=== PATIENT | male | born 1935 | race Caucasian/White ===

== ENCOUNTER 2018-02-26 08:26 | Day surgery (SDC) | payer OTHER ==
[2018-02-25 13:36] LABS: Absolute Monocytes 0.2 K/uL (0.1-1.3); Absolute Neutrophil 1.7 K/uL (1.8-8.0); Basophils % 0.1 % (0-1.3); Eosinophils % 0.2 % (0-4.4); Hematocrit 31.1 % (39.6-49.0); Lymphocytes % 94.2 % (15.3-44.8); MPV 9.5 fL (7.6-11.3); Monocytes % 0.5 % (3.3-12.3); RBC Red Blood Cell Count 3.55 M/uL (4.33-5.43)
[2018-02-25 13:56] LABS: BUN Blood Urea Nitrogen 13 mg/dL (7-18); Bicarbonate 29 mmol/L (21-32); Glucose Level 104 mg/dL (74-106); Potassium 3.9 mmol/L (3.5-5.1); Sodium Level 134 mmol/L (136-145)
--- NOTE | 2018-02-25 14:26 | RAD REPORT ---
EXAM DESCRIPTION: RAD - Chest Pa And Lat (2 Views) - 02/25/2018 2:19 pm CLINICAL HISTORY: PRE SURGERY Chest pain. COMPARISON: Chest Pa And Lat (2 Views) dated 09/23/2017; Chest Pa And Lat (2 Views) dated 08/06/2017 FINDINGS: The lungs are clear. The heart is normal in size. No displaced fractures. IMPRESSION: No acute or concerning finding suspected.
[2018-02-25 14:33] LABS: Platelet Estimate ADEQ
[2018-02-25 14:34] LABS: Blood Morphology Comment NOT SEEN (NOT SEEN)
--- NOTE | 2018-02-26 05:17 | EKG ---
Test Date: 2018-02-25 Test Time: 13:15:23 Die Cast Technician: FIFI/ MEASUREMENT RESULTS: Intervals: Rate: 66 RI: 192 QRSD: 80 QT: 384 QTc: 402 [place]: P: 72 RI: 192 QRS: 64 T: 95 INTERPRETIVE STATEMENTS: Normal sinus rhythm Nonspecific ST abnormality Abnormal ECG Compared to ECG 04/06/2014 10:14:48 ST (T wave) deviation now present Electronically Signed On 02-26-18 05:16:53 SERVICE ESTABLISHMENT ATTENDANT by Kiel Wang
[2018-02-26] MEDS ORDERED: Ringers Lactate 1,000 ML IV ONE (08:47)
[2018-02-26] MEDS ORDERED: CEFAZOLIN 1GM (PREMIX IV) 1 GM/50 ML BAG ONE (08:48)
[2018-02-26] MEDS ORDERED: PROPOFOL 200 MG/20 ML VIAL IV ONE (09:17)
[2018-02-26] MEDS ORDERED: FENTANYL CITR 100 MCG/2 ML ONE (09:17)
[2018-02-26] MEDS ORDERED: LIDOCAINE 2% MPF 5 ML VIAL ONE (09:18)
[2018-02-26] MEDS ORDERED: MIDAZOLAM HCL 2 MG/2 ML INJ ONE (09:18)
[2018-02-26] MEDS ORDERED: ROCURONIUM 50 MG/5 ML VIAL IV ONE (09:18)
[2018-02-26] MEDS ORDERED: EPHEDRINE SULF 50 MG/10 ML SYR ONE (10:10)
[2018-02-26] MEDS ORDERED: KETOROLAC 30 MG/ML INJ ONE (10:28)
--- NOTE | 2018-02-27 03:30 | OP ---
Date of Procedure: 02/26/2018 Surgeon: Roberto Jim MD Preoperative Diagnosis: Right inguinal hernia. Postoperative Diagnosis: Right inguinal hernia. Procedure: Repair of right inguinal hernia. Estimated Blood Loss: Minimal. Specimen: Hernia sac. Findings: As above. Anesthesia: General. Complications: None. Disposition: The patient tolerated the procedure in stable condition and taken to recovery in good g eneral condition. Procedure In Detail: The patient was brought to the OR and placed in supine position. General anest hesia was begun. The patient was prepped and draped in the usual sterile fashion. Marcaine 0.5% was infiltrated in a field block fashion at the pubic tubercle and the anterior superior spine, and then a 4-cm incision made obliquely between the two. Subcutaneous tissue was divided. Rubens's fascia w as identified and divided. Aponeurosis was identified and mobilized inferiorly to expose shelving ed ge, and then the aponeurosis was opened through the external ring. Ilioinguinal nerve was identified and retracted out of the field of dissection. Cord was skeletonized. A large indirect sac was pres ent, dissected free from the cord structures. High ligation with 2-0 Prolene suture ligature and víctor e hand tie was done. Sac was excised and sent to Pathology as specimen. No in direct hernia was nicholas reciated. Subsequently Marlex mesh plug was placed in the internal ring and secured with the [employer] stapler. Onlay mesh was placed on the inguinal floor and secured medially to the pubic tubercle, superiorly to the conjoined tendon and inferior to the shelving edge, laterally to each other. Then, cord structures and ilioinguinal nerve were placed back in their anatomic location. A 2-0 Prolene w as used to close the aponeurosis, 3-0 chromic was used to close the Rubens's fascia, and jordon were used to close skin. Sterile dressing was applied. The patient was awakened and taken to recovery i n good general condition. Discharge Note: The patient will go to day surgery and home when stable. Disposition: Home. Condition: Stable. Discharge Instructions: Resume home medications and diet. Activity as tolerated. No heavy lifting. Remove outer dressing in 2 days. Shower. Keep wound clean and dry. Follow up in my office in a w [place]. Call for appointment. Tylenol No. 3, 1 tablet p.o. q.4 p.r.n. pain. Scrotal support. Ice pac k as needed. TOMMY/DONG Voice ID: [id number] Report ID: [id number]
== END 2018-02-26 13:06 | disposition home or self-care (01) ==
LOC: OR 08:26
PROVIDERS: ATTEND Surgery
PROC: 0YU50JZ Supplement Right Inguinal Region with Synthetic Substitute, Open Approach (ICD-10-PCS; principal; 2018-02-26 09:45)
DX: K40.90 Unilateral inguinal hernia, without obstruction or gangrene, not specified as recurrent (principal); I10 Essential (primary) hypertension; C91.10 Chronic lymphocytic leukemia of B-cell type not having achieved remission; Z80.52 Family history of malignant neoplasm of bladder
CPT/HCPCS: 36415; 49505; 71046; 80048; 85025; 88302; 93005; J0690; J2250; J2704; J3010

== ENCOUNTER → 2018-07-30 | Day surgery (SDC) | payer OTHER ==
[2018-07-29 16:10] LABS: Ferritin 191.4 ng/mL (26-388)
[~2018-07-30] MED LIST: NA CHLORIDE 0.9% 500 ML ONE
[2018-07-30 09:01] VITALS: BP 105/47; TEMP 99.8; O2SAT 99
[2018-07-30 09:04] VITALS: BMI 24.5
[2018-07-30 14:50] LABS: Hematocrit 21.1 % (39.6-49.0)
== END ==
LOC: DS 07:36
PROVIDERS: ATTEND Internal Medicine Medical Oncology
DX: C91.10 Chronic lymphocytic leukemia of B-cell type not having achieved remission (principal); D64.81 Anemia due to antineoplastic chemotherapy
CPT/HCPCS: 36415 ×2; 86900; 86850; 86901; 85018; 85014; 82728; 83540; 84466; 82668; 36430; P9016 ×2

== ENCOUNTER 2018-08-03 16:43 | Inpatient (IN) | payer OTHER ==
[2018-08-03] MEDS ORDERED: CEFEPIME 1 GM/100 ML BAG IV ONE (17:25)
[2018-08-03] MEDS ORDERED: ACETAMINOPHEN 500 MG TAB ONE (17:25)
[2018-08-03] MEDS ORDERED: NA CHLORIDE 0.9% 2,000 ML ONE (17:26)
--- NOTE | 2018-08-03 17:27 | ER ---
Nurse's Notes [facility] Name: Oscar Hernandez Age: 82 yrs Sex: Male : 1935 Arrival Date: 08/03/2018 Time: 16:44 Bed 8 Private MD: Po Giang V Diagnosis: Neutropenia;Fever, unspecified Presentation: 08/03 16:48 Presenting complaint: Patient states: "I am being treated for CLL and I had one chemo aa5 treatment back in June and today I had blood work and they said I was anemic". Pt reports chills. Transition of care: patient was not received from another setting of care. Onset of symptoms was August 03, 2018. Risk Assessment: Do you want to hurt yourself or someone else? Patient reports no desire to harm self or others. Care prior to arrival: None. 16:48 Acuity: CHARBEL 2 aa5 16:48 Method Of Arrival: Ambulatory aa5 17:00 Initial Sepsis Screen: Does the patient meet any 2 criteria? Temp <36.0*C (96.8*F)) or aa5 > 38.3*C (100.9*F). HR > 90 bpm. Yes Does the patient have a suspected source of infection? Yes:. Historical: - Allergies: 16:50 No Known Allergies; aa5 - PMHx: 16:50 CLL; Hypertension; aa5 - PSHx: 16:50 Hernia repair; aa5 - Social history:: Smoking status: Patient/guardian denies using tobacco. - Ebola Screening: : No symptoms or risks identified at this time. Screenin:40 Abuse screen: Denies threats or abuse. Denies injuries from another. Nutritional sg screening: No deficits noted. Tuberculosis screening: No symptoms or risk factors identified. Fall Risk None identified. Assessment: 17:15 General: Appears in no apparent distress. comfortable, well groomed, well developed, sg well nourished, Behavior is calm, cooperative, appropriate for age. Pain: Denies pain. Neuro: Level of Consciousness is awake, alert, obeys commands, Oriented to person, place, time, situation, Electric Motor Winder are equal bilaterally Moves all extremities. Gait is steady, Speech is normal, Facial symmetry appears normal, Pupils are PERRLA. Cardiovascular: Patient's skin is warm and dry. Chest pain is denied. Respiratory: Airway is patent Respiratory effort is even, unlabored, Respiratory pattern is regular, symmetrical, Breath sounds are clear. GI: Abdomen is round non-distended, Reports normal bowel habits, tolerance of fluids, tolerance of food. : No signs and/or symptoms were reported regarding the genitourinary system. EENT: No signs and/or symptoms were reported regarding the EENT system. Derm: Skin is intact, is healthy with good turgor, Skin is dry, Skin is pale, Skin temperature is warm. Musculoskeletal: Circulation, motion, and sensation intact. Range of motion: intact in all extremities, Swelling absent. 18:15 Reassessment: Patient appears in no apparent distress at this time. Patient and/or sg family updated on plan of care and expected duration. Pain level reassessed. Patient is alert, oriented x 3, equal unlabored respirations, skin warm/dry/pink. pt family remains at bedside, pt requesting warm blankets at this time, educated on fever prevention and pt given a sheet, pt stated understanding. 19:15 Reassessment: Patient appears in no apparent distress at this time. Patient and/or aa1 family updated on plan of care and expected duration. Pain level reassessed. Patient is alert, oriented x 3, equal unlabored respirations, skin warm/dry/pink. Pt awaiting admission to 4th floor. 19:40 Reassessment: Patient appears in no apparent distress at this time. Patient is alert, aa1 oriented x 3, equal unlabored respirations, skin warm/dry/pink. Report given to DON Cuadra. Vital Signs: 16:50 BP 131 / 61; Pulse 128; Resp 18 S; Temp 100.4(O); Pulse Ox 96% on R/A; Weight 75.3 kg aa5 (R); Height 5 ft. 9 in. (175.26 cm) (R); Pain 0/10; 19:30 BP 106 / 44; Pulse 88; Resp 18; Temp 98.8(O); Pulse Ox 98% on R/A; Pain 0/10; aa1 16:50 Body Mass Index 24.51 (75.30 kg, 175.26 cm) aa5 ED Course: 16:44 Patient arrived in ED. as 16:44 Po Giang MD is Private Physician. as 16:48 Arm band placed on. aa5 16:49 Triage completed. aa5 16:51 Rivas Felton PA is PHCP. jr8 16:51 Jerardo Palafox MD is Attending Physician. jr8 16:57 Ashvin Jara, RN is Primary Nurse. sg 17:15 EKG done, by phlebotomy services technician. reviewed by Rivas SAVAGE. 3 17:26 Po Giang MD is Hospitalizing Provider. jr8 17:30 Initial lab(s) drawn, by me, sent to lab. First set of blood cultures drawn by me. sg Inserted saline lock: 20 gauge in left forearm, using aseptic technique. Blood collected. 17:34 Chest Single View XRAY In Process Unspecified. EDMS 17:40 Patient has correct armband on for positive identification. Placed in gown. Bed in low sg position. Call light in reach. Side rails up X 1. 17:45 Second set of blood cultures drawn by me. sg 19:40 No provider procedures requiring assistance completed. Patient admitted, IV remains in aa1 place. Administered Medications: 17:50 Drug: Tylenol 1000 mg Route: PO; sg 18:55 Follow up: Response: No adverse reaction; Temperature is decreased sg 17:50 Drug: NS 0.9% (30 ml/kg) 30 ml/kg Route: IV; Rate: bolus; Site: left forearm; sg 17:50 Drug: Cefepime 1 grams Route: IVPB; Rate: 200 ml/hr; Infused Over: 30 mins; Site: left sg femoral; 19:36 Drug: vancoMYCIN 1 grams Route: IVPB; Infused Over: 2 hrs; Site: left forearm; aa1 Point of Care Testing: Blood Glucose: 17:22 Blood Glucose: 115 mg/dL; hj Ranges: Outcome: 17:27 Decision to Hospitalize by Provider. jr8 19:40 Admitted to Med/surg accompanied by tech, family with patient, via wheelchair, room aa1 413, with chart, Report called to DON Cuadra 19:40 Condition: stable 19:40 Instructed on the need for admit, Demonstrated understanding of instructions. 19:50 Patient left the ED. aa1 Signatures: Dispatcher [employer] EDND Ashvin Jara RN RN Maylin Geronimo RN RN aa1 Lydia Tinoco Audri, RN RN aa5 Rivas Felton PA PA jr8 Davidson Frias RN RN hj Sharda Martinez sm3 Corrections: (The following items were deleted from the chart) 17:20 17:00 EKG done, by phlebotomy services technician. reviewed by Rivas SAVAGE sm3 sm3
--- NOTE | 2018-08-03 17:27 | EDPHYS ---
Physician Documentation [facility] Name: Oscar Hernandez Age: 82 yrs Sex: Male : 1935 Arrival Date: 08/03/2018 Time: 16:44 Bed 8 Private MD: Po Giang V ED Physician Jerardo Palafox HPI: 08/03 17:17 This 82 yrs old Male presents to ER via Ambulatory with complaints of Fever. jr8 17:17 The patient reports fever, with an emergency department temperature of 100.4 degrees jr8 Fahrenheit. Onset: The symptoms/episode began/occurred acutely, today. Modifying factors: On chemotherapy . Associated signs and symptoms: Pertinent negatives: abdominal pain, cough, diarrhea, earache, headache, hemoptysis, runny nose, sinus congestion, shortness of breath, sore throat, vomiting. Severity of symptoms: At their worst the symptoms were moderate in the emergency department the symptoms are unchanged. It is unknown whether or not the patient has had similar symptoms in the past. The patient has been recently seen by a physician:. Patient currently undergoing chemotherapy treatments for CLL. Stated that he had anemia and neutropenia from the therapy. Given two units of blood recently and Neupogen shot today. Started to run fever this afternoon and was advised to come to ED for admission and work up for neutropenic fever . Historical: - Allergies: 16:50 No Known Allergies; aa5 - PMHx: 16:50 CLL; Hypertension; aa5 - PSHx: 16:50 Hernia repair; aa5 - Social history:: Smoking status: Patient/guardian denies using tobacco. - Ebola Screening: : No symptoms or risks identified at this time. ROS: 17:17 Eyes: Negative for injury, pain, redness, and discharge, ENT: Negative for injury, jr8 pain, and discharge, Neck: Negative for injury, pain, and swelling, Cardiovascular: Negative for chest pain, palpitations, and edema, Respiratory: Negative for shortness of breath, cough, wheezing, and pleuritic chest pain, Abdomen/GI: Negative for abdominal pain, nausea, vomiting, diarrhea, and constipation, Back: Negative for injury and pain, MS/Extremity: Negative for injury and deformity, Skin: Negative for injury, rash, and discoloration, Neuro: Negative for headache, weakness, numbness, tingling, and seizure. 17:17 Constitutional: Positive for body aches, chills, fever. Exam: 17:17 Eyes: Pupils equal round and reactive to light, extra-ocular motions intact. Lids and jr8 lashes normal. Conjunctiva and sclera are non-icteric and not injected. Cornea within normal limits. Periorbital areas with no swelling, redness, or edema. ENT: Nares patent. No nasal discharge, no septal abnormalities noted. Tympanic membranes are normal and external auditory canals are clear. Oropharynx with no redness, swelling, or masses, exudates, or evidence of obstruction, uvula midline. Mucous membranes moist. Neck: Trachea midline, no thyromegaly or masses palpated, and no cervical lymphadenopathy. Supple, full range of motion without nuchal rigidity, or vertebral point tenderness. No Meningismus. Cardiovascular: Regular rate and rhythm with a normal S1 and S2. No gallops, murmurs, or rubs. Normal PMI, no JVD. No pulse deficits. Respiratory: Lungs have equal breath sounds bilaterally, clear to auscultation and percussion. No rales, rhonchi or wheezes noted. No increased work of breathing, no retractions or nasal flaring. Abdomen/GI: Soft, non-tender, with normal bowel sounds. No distension or tympany. No guarding or rebound. No evidence of tenderness throughout. Back: No spinal tenderness. No costovertebral tenderness. Full range of motion. Skin: Warm, dry with normal turgor. Normal color with no rashes, no lesions, and no evidence of cellulitis. MS/ Extremity: Pulses equal, no cyanosis. Neurovascular intact. Full, normal range of motion. Neuro: Awake and alert, GCS 15, oriented to person, place, time, and situation. Cranial nerves II-XII grossly intact. Motor strength 5/5 in all extremities. Sensory grossly intact. Cerebellar exam normal. Normal gait. Vital Signs: 16:50 BP 131 / 61; Pulse 128; Resp 18 S; Temp 100.4(O); Pulse Ox 96% on R/A; Weight 75.3 kg aa5 (R); Height 5 ft. 9 in. (175.26 cm) (R); Pain 0/10; 19:30 BP 106 / 44; Pulse 88; Resp 18; Temp 98.8(O); Pulse Ox 98% on R/A; Pain 0/10; aa1 16:50 Body Mass Index 24.51 (75.30 kg, 175.26 cm) aa5 MDM: 16:51 Patient medically screened. [facility] 17:17 Data reviewed: vital signs, nurses notes, lab test result(s), EKG, radiologic studies, [facility] plain films. Data interpreted: Pulse oximetry: on room air is 96 %. Interpretation: normal. Counseling: I had a detailed discussion with the patient and/or guardian regarding: the historical points, exam findings, and any diagnostic results supporting the discharge/admit diagnosis, lab results, radiology results, the need for further work-up and treatment in the hospital. 08/03 17:03 Order name: Ptt, Activated; Complete Time: 07:03 [facility] 08/03 17:03 Order name: Basic Metabolic Panel; Complete Time: 07:03 [facility] 08/03 17:03 Order name: Blood Culture Adult (2) [facility] 08/03 17:03 Order name: CBC with Diff; Complete Time: 07:03 [facility] 08/03 17:03 Order name: Lactate; Complete Time: 07:03 [facility] 08/03 17:03 Order name: LFT's; Complete Time: 07:03 [facility] 08/03 17:03 Order name: Procalcitonin; Complete Time: 07:03 [facility] 08/03 17:03 Order name: Protime (+inr); Complete Time: 07:03 [facility] 08/03 17:03 Order name: Urine Microscopic Only; Complete Time: 07:03 [facility] 08/03 17:03 Order name: Chest Single View XRAY; Complete Time: 07:03 [facility] 08/03 17:25 Order name: Glucose, Ancillary Testing; Complete Time: 17:27 EDMS 08/03 19:47 Order name: Urine Dipstick--Ancillary (enter results) [facility] 08/03 17:03 Order name: Accucheck; Complete Time: 17:16 [facility] 08/03 17:03 Order name: Cardiac monitoring; Complete Time: 17:16 [facility] 08/03 17:03 Order name: EKG - Nurse/Tech; Complete Time: 17:16 [facility] 08/03 17:03 Order name: IV Saline Lock - Large Bore; Complete Time: 17:50 [facility] 08/03 17:03 Order name: Labs collected and sent; Complete Time: 17:50 [facility] 08/03 17:03 Order name: O2 Per Protocol; Complete Time: 17:16 [facility] 08/03 17:03 Order name: O2 Sat Monitoring; Complete Time: 17:16 [facility] 08/03 17:03 Order name: Urine Dipstick-Ancillary (obtain specimen); Complete Time: 19:38 [facility] 08/03 17:32 Order name: CONS Physician Consult EDTN 08/03 17:33 Order name: EKG Electrocardiogram; Complete Time: 17:33 EDMS Administered Medications: 17:50 Drug: Tylenol 1000 mg Route: PO; sg 18:55 Follow up: Response: No adverse reaction; Temperature is decreased sg 17:50 Drug: NS 0.9% (30 ml/kg) 30 ml/kg Route: IV; Rate: bolus; Site: left forearm; sg 17:50 Drug: Cefepime 1 grams Route: IVPB; Rate: 200 ml/hr; Infused Over: 30 mins; Site: left sg femoral; 19:36 Drug: vancoMYCIN 1 grams Route: IVPB; Infused Over: 2 hrs; Site: left forearm; aa1 Point of Care Testing: Blood Glucose: 17:22 Blood Glucose: 115 mg/dL; hj Ranges: Critical Glucose Levels:Adult <50 mg/dl or >400 mg/dl <40 mg/dl or >180 mg/dl Disposition: 08/04 07:03 Co-signature as Attending Physician, Jerardo Palafox MD. rn Disposition: 08/03/18 17:27 Hospitalization ordered by Po Giang for Inpatient Admission. Preliminary diagnosis are Neutropenia, Fever, unspecified. - Bed requested for Telemetry/MedSurg (Inpatient). - Status is Inpatient Admission. aa1 - Condition is Stable. - Problem is new. - Symptoms are unchanged. UTI on Admission? No Signatures: Dispatcher [employer] EDTN Avis Robertson Steven RN RN sg Maylin Geronimo RN RN aa1 Jerardo Palafox MD MD rn Calderon, Audri, RN RN aa5 Rivas Felton PA PA jr8 Corrections: (The following items were deleted from the chart) 08/03 18:33 17:27 Hospitalization Ordered by Po Giang MD for Inpatient Admission. Preliminary bd diagnosis is Neutropenia; Fever, unspecified. Bed requested for Telemetry/MedSurg (Inpatient). Status is Inpatient Admission. Condition is Stable. Problem is new. Symptoms are unchanged. UTI on Admission? No. jr8 19:50 18:33 08/03/2018 17:27 Hospitalization Ordered by Po Giagn MD for Inpatient aa1 Admission. Preliminary diagnosis is Neutropenia; Fever, unspecified. Bed requested for Telemetry/MedSurg (Inpatient). Status is Inpatient Admission. Condition is Stable. Problem is new. Symptoms are unchanged. UTI on Admission? No. bd
--- NOTE | 2018-08-03 17:48 | RAD REPORT ---
EXAM DESCRIPTION: Farrah Single View08/03/2018 5:33 pm CLINICAL HISTORY: Fever COMPARISON: February 2018 FINDINGS: The lungs appear clear of acute infiltrate. The heart is normal size IMPRESSION: No acute abnormalities displayed
[2018-08-03 18:00] LABS: Absolute Lymphocytes (CBC) 0.1 K/uL (0.7-4.9); Absolute Monocytes 0.1 K/uL (0.1-1.3); Absolute Neutrophil 1.3 K/uL (1.8-8.0); Basophils % 0.8 % (0-1.3); Eosinophils % 0.3 % (0-4.4); Hematocrit 22.6 % (39.6-49.0); Lymphocytes % 6.4 % (15.3-44.8); MPV 8.6 fL (7.6-11.3); RBC Red Blood Cell Count 2.58 M/uL (4.33-5.43)
[2018-08-03] MEDS ORDERED: VANCOMYCIN 1.75 GM in NA CHLORIDE 0.9% 500 ML IVPB ONE (18:00)
[2018-08-03 18:04] LABS: Protime INR 1.2
[2018-08-03 18:15] LABS: Albumin 3.3 g/dL (3.4-5.0); Bilirubin Direct 0.2 mg/dL (0-0.2); Bilirubin Total 0.9 mg/dL (0.2-1.0); Potassium 4.7 mmol/L (3.5-5.1); Protein, Total 5.8 g/dL (6.4-8.2)
--- NOTE | 2018-08-03 19:07 | P.HP ---
Certification for Inpatient Patient admitted to: Observation With expected LOS: <2 Midnights Practitioner: I am a practitioner with admitting privileges, knowledge of patient current condition, hospital course, and medical plan of care. Services: Services provided to patient in accordance with Admission requirements found in Title 42 Section 412.3 of the Code of Federal Regulations Patient History Date of Service: 08/03/18 Reason for admission: FEVER AND LOW WHITE COUNT History of Present Illness: MR. ANGEL HAS CLL AND IS GETTING CHEMOTHERAPY FROM DR. NUÑEZ. HE HAD FEVER TODAY AND WBC COUNT WAS DOWN TO 1.5K. HE ALSO HAS HG DOWN TO 7.5 AND PLATELETS IN 60S. HE IS STABLE. HE HAS NO CHEST PAIN, COUGH, UTI, GI SYMPTOMS. Allergies No Known Drug Allergies Allergy (Verified 02/25/18 12:54) Unknown Home Medications: Amlodipine Besylate [Norvasc] 5 mg PO DAILY 02/25/18 Aspirin [Adult Aspirin] 81 mg PO DAILY 02/25/18 Review of Systems 10-point ROS is otherwise unremarkable General: Weakness, Malaise Physical Examination - Physical Exam General: Mild distress HEENT: Atraumatic, PERRLA, Mucous membr. moist/pink, EOMI, Sclerae nonicteric Neck: Supple, 2+ carotid pulse no bruit, No LAD, Without JVD or thyroid abnormality Respiratory: Clear to auscultation bilaterally, Normal air movement Cardiovascular: Regular rate/rhythm, Normal S1 S2 Gastrointestinal: Normal bowel sounds, No tenderness Musculoskeletal: No tenderness Integumentary: No rashes Neurological: Normal gait, Normal speech, Normal strength at 5/5 x4 extr, Normal tone, Normal affect Lymphatics: No axilla or inguinal lymphadenopathy - Studies Laboratory Data (last 24 hrs) 08/03/18 17:30: WBC 1.5 L* D, Hgb 7.5 L*, Hct 22.6 L, Plt Count 58 L 08/03/18 17:30: Sodium 133 L, Potassium 4.7, BUN 29 H, Creatinine 0.91, Glucose 120 H, Total Bilirubin 0.9, AST 25, ALT 29, Alkaline Phosphatase 110 08/03/18 17:30: PT 14.1 H, INR 1.20, APTT 29.9 Assessment and Plan - Problems (Diagnosis) (1) Neutropenic fever Current Visit: Yes Status: Acute Plan: FROM CHEMO. HE WILL GET BETTER. RESUME VANCOMYCIN AND CEFEPIME PER DR STRONG. CBC , BASIC DAILY. (2) CLL (chronic lymphocytic leukemia) Current Visit: Yes Status: Chronic Plan: WBC DOWN FROM 80K TO 1.5K ON CHEMO. - Advance Directives Does patient have a Living Will: No Does patient have a Durable POA for Healthcare: No
[2018-08-03 19:57] LABS: Urine Blood NEGATIVE (NEG); Urine Glucose NEGATIVE (NEG); Urine Protein 1+ (NEG); Urine pH 6.5 (5.0-7.0)
[2018-08-03 19:59] LABS: Urine Bacteria NONE SEEN /HPF (NONE SEEN); Urine RBC NONE SEEN /HPF (NONE SEEN)
[2018-08-03 20:00] LABS: Urine Culture Reflex Order NOT NEEDED
[2018-08-03] MEDS ORDERED: ACETAMINOPHEN 500 MG TAB PO PRN (20:10)
[2018-08-03] MEDS ORDERED: ONDANSETRON 4 MG/2 ML VIAL IV PRN (20:10)
[2018-08-03 20:25] LABS: Anisocytosis 1+; Blood Morphology Comment NOTED (NOT SEEN); Platelet Estimate DECR
[2018-08-03 21:54] VITALS: BMI 24.7
[2018-08-04] MEDS: NA CHLORIDE 0.9% 1,000 ML IV SCH ×2 (00:14→09:30)
[2018-08-04 04:22] LABS: Hematocrit 22.4 % (39.6-49.0)
[2018-08-04 04:55] LABS: Absolute Lymphocytes (CBC) 0.2 K/uL (0.7-4.9); Absolute Monocytes 0.1 K/uL (0.1-1.3); Absolute Neutrophil 3.5 K/uL (1.8-8.0); Basophils % 0.8 % (0-1.3); Eosinophils % 0.7 % (0-4.4); Monocytes % 2.7 % (3.3-12.3); RBC Red Blood Cell Count 2.53 M/uL (4.33-5.43)
[2018-08-04] MEDS ORDERED: CEFEPIME 1 GM/VIAL IV SCH (05:00)
[2018-08-04 05:03] LABS: Potassium 4.4 mmol/L (3.5-5.1)
--- NOTE | 2018-08-04 06:17 | EKG ---
Test Date: 2018-08-03 Test Time: 17:15:18 Personal Banking Officer: SHERRI MEASUREMENT RESULTS: Intervals: Rate: 116 NE: 178 QRSD: 74 QT: 300 QTc: 417 [place]: P: 53 NE: 178 QRS: 25 T: 72 INTERPRETIVE STATEMENTS: Sinus tachycardia Otherwise normal ECG Compared to ECG 02/25/2018 13:15:23 Sinus rhythm no longer present ST (T wave) deviation no longer present Electronically Signed On 08-04-18 06:16:18 CDT by Kiel Wang
[2018-08-04 08:54] VITALS: TEMP 97.8
[2018-08-04] MEDS ORDERED: CEFEPIME/SWI 1gm 10 ML IV SCH (09:00)
[2018-08-04] MEDS ORDERED: NA CHLORIDE 0.9% 250 ML ONE ×2 (10:15→13:51)
[2018-08-04 11:01] VITALS: O2SAT 96
[2018-08-04] MEDS ORDERED: VANCOMYCIN 1.25 GM in NA CHLORIDE 0.9% 250 ML IVPB SCH ×2 (13:00→17:00)
--- NOTE | 2018-08-04 13:06 | P.DS ---
Admission Date: 08/03/18 Discharge Date: 08/04/18 Disposition: ROUTINE DISCHARGE Discharge Condition: FAIR Reason for Admission: FEVER AND LOW WHITE COUNT - Problems (1) Neutropenic fever Current Visit: Yes Status: Acute (2) CLL (chronic lymphocytic leukemia) Current Visit: Yes Status: Chronic Brief History of Present Illness: MR. ANGEL HAS CLL AND IS GETTING CHEMOTHERAPY FROM DR. NUÑEZ. HE HAD FEVER TODAY AND WBC COUNT WAS DOWN TO 1.5K. HE ALSO HAS HG DOWN TO 7.5 AND PLATELETS IN 60S. HE IS STABLE. HE HAS NO CHEST PAIN, COUGH, UTI, GI SYMPTOMS. MR ANGEL IS DOING GREAT. HIS WBC IS 3800 NOW AND HE IS AFEBRILE HE WILL GO HOME AFTER TWO UNITS OF PACKED RBCS. DR. SRTONG WILL DECIDE ON ABX FO RHOME Vital Signs/Physical Exam: Temp Pulse Resp BP Pulse Ox 97.8 F 68 16 109/52 L 98 08/04/18 12:00 08/04/18 12:00 08/04/18 12:00 08/04/18 12:00 08/04/18 12:00 Laboratory Data at Discharge: WBC 3.9 K/uL (4.3-10.9) L D 08/04/18 03:41 Hgb 7.4 g/dL (13.6-17.9) L* 08/04/18 03:41 Hct 22.4 % (39.6-49.0) L 08/04/18 03:41 Plt Count 49 K/uL (152-406) L* 08/04/18 03:41 PT 14.1 SECONDS (9.5-12.5) H 08/03/18 17:30 INR 1.20 08/03/18 17:30 APTT 29.9 SECONDS (24.3-36.9) 08/03/18 17:30 Sodium 138 mmol/L (136-145) 08/04/18 03:41 Potassium 4.4 mmol/L (3.5-5.1) 08/04/18 03:41 BUN 21 mg/dL (7-18) H 08/04/18 03:41 Creatinine 0.86 mg/dL (0.55-1.3) 08/04/18 03:41 Glucose 85 mg/dL (74-106) 08/04/18 03:41 Total Bilirubin 0.9 mg/dL (0.2-1.0) 08/03/18 17:30 AST 25 U/L (15-37) 08/03/18 17:30 ALT 29 U/L (12-78) 08/03/18 17:30 Alkaline Phosphatase 110 U/L (45-117) 08/03/18 17:30 Home Medications: Allopurinol 300 mg PO SEECOM 08/03/18 Amlodipine [Norvasc*] 2.5 mg PO DAILY 08/03/18 Cholecalciferol (Vitamin D3) [Vitamin D3] 1,000 units PO DAILY 08/03/18 Meclizine HCl 25 mg PO TID PRN 08/03/18 Multivitamin [Daily Multiple Vitamin] 1 tab PO DAILY 08/03/18 Sulfamethoxazole/Trimethoprim [Sulfamethoxazole-Tmp Ds Tablet] 1 tab PO SEECOM 08/03/18 Valacyclovir [Valtrex*] 500 mg PO SEECOM 08/03/18
[2018-08-04 16:34] VITALS: BP 100/57
[2018-08-04 18:42] LABS: Hematocrit 24.4 % (39.6-49.0)
== END 2018-08-04 19:36 | disposition home or self-care (01) | DRG 809 ==
LOC: ER 16:43 → ERHOLD 17:31 → 4TH 19:43
PROVIDERS: ADMIT Internal Medicine; ATTEND Internal Medicine
PROC: 30233N1 Transfusion of Nonautologous Red Blood Cells into Peripheral Vein, Percutaneous Approach (ICD-10-PCS; principal; 2018-08-04)
DX: D70.9 Neutropenia, unspecified (principal); C91.10 Chronic lymphocytic leukemia of B-cell type not having achieved remission; R50.81 Fever presenting with conditions classified elsewhere; Z79.82 Long term (current) use of aspirin
CPT/HCPCS: 36415; 36430; 71045; 80048; 80076; 81003; 81015; 82962; 83605; 84145; 85014; 85018; 85025; 85610; 85730; 86850; 86900; 86901; 87040; 93005; 96365; 96367; 99285; J0692; J7030; P9016

== ENCOUNTER 2021-03-14 09:37 | Emergency (ER) | payer OTHER ==
--- NOTE | 2021-03-14 12:53 | ER ---
Nurse's Notes [facility] Name: Oscar Hernandez Age: 85 yrs Sex: Male : 1935 Arrival Date: 03/14/2021 Time: 09:39 Bed Waiting Private MD: Adriana Lovelace; Po Giang V Diagnosis: Presentation: 03/14 10:36 Chief complaint: Patient states: had temporal temperature of 101.0 fever last night; is vg1 concerned bc has Leukemia. Denies NVD or cough. Coronavirus screen: Vaccine status: Patient reports receiving the 2nd dose of the covid vaccine. Ebola Screen: Patient negative for fever greater than or equal to 101.5 degrees Fahrenheit, and additional compatible Ebola Virus Disease symptoms. Initial Sepsis Screen: Does the patient meet any 2 criteria? No. Patient's initial sepsis screen is negative. Does the patient have a suspected source of infection? No. Patient's initial sepsis screen is negative. Risk Assessment: Do you want to hurt yourself or someone else? Patient reports no desire to harm self or others. Onset of symptoms was March 13, 2021. 10:36 Method Of Arrival: Ambulatory vg1 10:36 Acuity: CHARBEL 4 vg1 Triage Assessment: 10:39 General: Appears in no apparent distress. comfortable, Behavior is calm, cooperative. vg1 Pain: Denies pain. Historical: - Allergies: 10:39 No Known Allergies; vg1 - Home Meds: 10:39 Ibutinib [Active]; Valacylovir HCL [Active]; vg1 - PMHx: 10:39 CLL; Hypertension; Leukemia; vg1 - PSHx: 10:39 Hernia Repair; vg1 - Immunization history:: Client reports receiving the 2nd dose of the Covid vaccine. - Social history:: Smoking status: Patient denies any tobacco usage or history of. Vital Signs: 10:36 BP 134 / 63; Pulse 90; Resp 16; Temp 98.8(O); Pulse Ox 100% ; Weight 79.38 kg; Height 5 vg1 ft. 9 in. (175.26 cm); Pain 0/10; 10:36 Body Mass Index 25.84 (79.38 kg, 175.26 cm) vg1 ED Course: 09:39 Patient arrived in ED. as 09:39 Po Giang MD is Private Physician. as 09:40 Adriana Lovelace is Private Physician. as 10:39 Triage completed. vg1 10:39 Arm band placed on. vg1 12:23 Kareem Joy MD is Attending Physician. kdr Administered Medications: No medications were administered Outcome: 12:53 Patient left the ED. vg1 Signatures: Kareem Joy MD MD kdr Lydia Tinoco Victoria, RN RN vg1
[2021-03-14 12:59] VITALS: BP 134/63; TEMP 98.8; O2SAT 100
== END 2021-03-14 12:53 | disposition left against medical advice (07) ==
LOC: ER 09:37
DX: R50.9 Fever, unspecified (principal); Z53.21 Procedure and treatment not carried out due to patient leaving prior to being seen by health care provider
CPT/HCPCS: 99281

== ENCOUNTER 2021-07-31 07:07 | Day surgery (SDC) | payer OTHER ==
[2021-07-31] MEDS ORDERED: NA CHLORIDE 0.9% 250 ML ONE (07:34)
[2021-07-31 08:29] VITALS: BMI 26.6
[2021-07-31 12:22] LABS: Hematocrit 20.4 % (39.6-49.0)
[2021-07-31 13:55] VITALS: BP 121/40; TEMP 98.5; O2SAT 97
== END 2021-07-31 12:05 | disposition home or self-care (01) ==
LOC: DS 07:07
PROVIDERS: ATTEND Internal Medicine Medical Oncology
DX: D64.81 Anemia due to antineoplastic chemotherapy (principal); D46.9 Myelodysplastic syndrome, unspecified; D80.1 Nonfamilial hypogammaglobulinemia
CPT/HCPCS: 36415; 86900; 86850; 86901; 85018; 85014; 36430; P9016; J7050

== ENCOUNTER 2021-08-29 07:20 | Day surgery (SDC) | payer OTHER ==
[2021-08-29] MEDS ORDERED: NA CHLORIDE 0.9% 250 ML ONE (08:18)
[2021-08-29 09:21] VITALS: BMI 23.3
[2021-08-29 11:12] VITALS: BP 125/54; TEMP 97.7; O2SAT 100
[2021-08-29 13:57] LABS: Hematocrit 22.5 % (39.6-49.0)
== END 2021-08-29 13:10 | disposition home or self-care (01) ==
LOC: DS 07:20
PROVIDERS: ATTEND Internal Medicine Hematology & Oncology
DX: D46.9 Myelodysplastic syndrome, unspecified (principal); D80.1 Nonfamilial hypogammaglobulinemia
CPT/HCPCS: 36415; 86900; 86850; 86901; 85018; 85014; 36430; P9016; J7050

== ENCOUNTER 2024-05-14 02:24 | Observation (INO) | payer OTHER ==
--- OUTSIDE RECORDS SUMMARY | 2024-05-14 02:27 | XMS REPORT | Clinical Summary ---
Author Name Unknown Organization [facility] Address [address] [place] [address] Care Team Providers Care Coffee Farmer Name Role Phone Bj Schaefer MD Primary Care Provider [phone] Carlyn Schaffer MD Unavailable ChemBlaise cristina MD Unavailable Allergies No known active allergies Medications * This document contains information received from the source organization and may not represent a complete record from that organization. valACYclovir (VALTREX) 500 mg tablet Take 1 tablet (500 mg) by mouth daily. 2 Active levoFLOXacin (LEVAQUIN) 500 mg tablet Take 1 tablet (500 mg) by mouth daily. 2 Active cholecalciferol, vitamin D3, (VITAMIN D3 ORAL) Take 1 capsule by mouth daily. 1000 int/units per day Active vit C/E/zinc ox/katia/lut/zeax (ICAPS AREDS2 ORAL) Take by mouth twice daily. Active UNABLE TO FIND Iron supplement daily Active L.acid/L.casei/B.b if/B.saritha/FOS (PROBIOTIC BLEND ORAL) Take by mouth daily. Active fluconazole (DIFLUCAN) 100 mg tablet Take 1 tablet (100 mg) by mouth daily. 2 Active ondansetron (ZOFRAN-ODT) 4 mg disintegrating tablet 1 TAB ONCE DAILY 30 MINUTES PRIOR TO CHEMO 2 Active tamsulosin (FLOMAX) 0.4 mg 24 hr capsule Take 1 capsule (0.4 mg) by mouth every other day. 2 Active entecavir (BARACLUDE) 0.5 mg tabletIndications: Chronic lymphocytic leukemia of B-cell type,Hepatitis B core antibody positive TAKE 1 TABLET BY MOUTH 1 TIME A DAY 30 tablet 3 2 Active furosemide (LASIX) 40 mg tablet Take 0.5 tablets (20 mg) by mouth daily. 3 Active gabapentin (NEURONTIN) 100 mg capsule Take 1 capsule (100 mg) by mouth 3 (three) times a day. 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 Immunizations Name Administration Dates Next Due Influenza, split virus, trivalent, preservative 12/15/2020 Moderna SARS-CoV-2 Vaccination 11/30/2020 Zoster, Unspecified 02/14/2021 Surgical History Surgery Date Site/Laterality Comments COLONOSCOPY HERNIA REPAIR 03/17/2018 - 03/16/2019 Medical History Medical History Date Comments Anemia Blood transfusion, without r eported diagnosis Chronic lymphoid leukemia, disease 1988 Treatment started in 05/2018- with rituxan also took imbruvica Family History Medical History Relation Name Comments Skin cancer Daughter Bladder Cancer Father Lady Hernandez Relation Name Status Comments Daughter Alive Father Lady White Mother Sister Alive Son Alive Social History Tobacco Use Types Packs/Day Years Used Date Smoking Tobacco: Former Cigarettes 1 10 1 04/17/1955 - 03/01/1966 Cigars Smokeless Tobacco: Never Alcohol Use Standard Drinks/Week Comments Not Currently 1 (1 standard drink = 0.6 oz pur e alcohol) Sex and Gender Information Value Date Recorded Sex Assigned at Male 06/15/2021 12:46 PM CDT Legal Sex Male 12:13 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 Gender Identity Male 06/15/2021 12:46 PM CDT Sexual Orientation Straight 06/15/2021 12 :46 PM CDT 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[employer] Not on file Not on file Not on file Obstetrics History Plan of Treatment Health Maintenance Due Date Last Done Comments Pneumococcal Vaccine: 50+ Ye ars (1 of 2 - PCV) 1954 COVID-19 Vaccine ( season) 2023 11/30/2020, 05/20/2020, 04/22/2020 Influenza Vaccine (#1) 2023 12/15/2020 Insurance [employer] MEDICARE PPO [employer] MEDICARE PPO Advance Directives Documents on File Type Date Recorded 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 Advance Directives: Living Will 05/17/2021 Directive to Physici ans and Family or Surrogates-Living Will Advance Directives: Medical Power of Protective Signal Repairer Helper 05/17/2021 Medical Power of Att orney Care Teams Coffee Farmer Relationship Specialty Start Date End Date Bj Schaefer MD [address] [place] [address] [email or web address] PCP - General Leukemia 05/08/21 Carlyn Schaffer MD [address] [facility] [place] [address] [email or web address] 03/20/22 Blaise Raya MD [address] [place] [address] [phone] [email or web address] Consulting Physician Infectious Diseases 06/19/21
[2024-05-14 02:58] LABS: PT Prothrombin Time 13.5 SECONDS (10.0-13.0); Protime INR 1.19
[2024-05-14 03:04] LABS: Absolute Basophils 0.1 K/uL (0-0.5); Absolute Eosinophils 0.1 K/uL (0-0.5); Absolute Lymphocytes (CBC) 0.5 K/uL (0.7-4.9); Absolute Monocytes 3.8 K/uL (0.1-1.3); Absolute Neutrophil 14.5 K/uL (1.8-8.0); Basophils % 0.6 % (0-1.3); Eosinophils % 0.5 % (0-4.4); Hematocrit 29.8 % (39.6-49.0); Hemoglobin 10.1 g/dL (13.6-17.9); Lymphocytes % 2.9 % (15.3-44.8); MCH 32.9 pg (27.0-35.0); MCHC 33.9 g/dL (32.0-36.0); MPV 9.2 fL (7.6-11.3); Monocytes % 20.1 % (3.3-12.3); Neutrophils % 75.9 % (41.7-73.7); Nucleated Red Blood Cells % 0.2 % (0-0); Platelets 131 thou/uL (152-406); RBC Red Blood Cell Count 3.07 M/uL (4.33-5.43); Red Cell Distribution Width 16.3 % (12.1-15.2)
[2024-05-14] MEDS ORDERED: ASPIRIN 81 MG CHEWABLE TABLET ONE (03:05)
[2024-05-14 03:11] LABS: Albumin/Globulin Ratio 1.4 (1.1-1.8); Anion Gap 10.9 mEq/L (5.0-15.0); Bilirubin Direct 0.2 mg/dL (0-0.2); Bilirubin Indirect, Calculated 0.3 mg/dL (0.2-0.8); Bilirubin Total 0.5 mg/dL (0.2-1.0); Globulin 2.9 g/dL (2.3-3.5); Magnesium 2.2 mg/dL (1.6-2.4); Potassium 3.9 mEq/L (3.5-5.1); Protein, Total 6.9 g/dL (6.4-8.2); Troponin High Sensitivity 15.3 pg/mL (<58.9)
[2024-05-14 03:29] LABS: C-Reactive Protein < 2.90 mg/L (<3.00)
[2024-05-14 04:42] LABS: Anisocytosis SLIGHT; Band Neutrophils 18 % (0-1); Blood Morphology Comment NOTED (NOT SEEN); Differential Total Cells Count 100; Eosinophils 1 % (0-3); Lymphocytes 5 % (15-42); Metamyelocytes 1 % (0-0); Monocytes 25 % (0-10); Platelet Estimate DECR; Polychromasia SLIGHT; Segmented Neutrophils 49 % (40-80)
--- NOTE | 2024-05-14 04:52 | ER ---
Nurse's Notes [facility] Name: Oscar Hernandez Age: 88 yrs Sex: Male : 1935 Arrival Date: 05/14/2024 Time: 02:24 Bed 2 Private MD: Diagnosis: Unstable angina Presentation: 05/14 02:39 Chief complaint: Patient states: CHEST PAIN THAT RADIATES TO THE UPPER BACK AND LEFT dd2 ARM THAT BEGAN APPROX 1.5 HOURS AGO. Coronavirus screen: At this time, the client does not indicate any symptoms associated with coronavirus-19. Ebola Screen: No symptoms or risks identified at this time. Initial Sepsis Screen: Does the patient meet any 2 criteria? No. Patient's initial sepsis screen is negative. Does the patient have a suspected source of infection? No. Patient's initial sepsis screen is negative. Risk Assessment: Do you want to hurt yourself or someone else? Patient reports no desire to harm self or others. Onset of symptoms was May 14, 2024. 02:39 Method Of Arrival: Ambulatory dd2 02:39 Acuity: CHARBEL 2 dd2 Triage Assessment: 02:42 General: Appears in no apparent distress. uncomfortable, Behavior is calm, cooperative, dd2 appropriate for age. Pain: Complains of pain in xiphoid area and mid-sternal area Pain radiates to thoracic area and left arm Pain currently is 7 out of 10 on a pain scale. Quality of pain is described as radiating, sharp, Pain began suddenly, 2 hours ago. EENT: No deficits noted. No signs and/or symptoms were reported regarding the EENT system. Neuro: No deficits noted. Cardoza Agitation-Sedation Scale (RASS): 0 - Alert and Calm Level of Consciousness is awake, alert, obeys commands, Oriented to person, place, time, situation, Appropriate for age. Cardiovascular: Reports chest pain, Heart tones S1 S2 present Patient's skin is warm and dry. Rhythm is sinus rhythm with unifocal PVCs Chest pain is described as Pain is 7 out of 10 on a pain scale. is located in substernal area radiates to left arm(s) back began 2 hours prior to arrival episodes are continuous. Respiratory: No deficits noted. Airway is patent Respiratory effort is even, unlabored, Respiratory pattern is regular, symmetrical. GI: No deficits noted. No signs and/or symptoms were reported involving the gastrointestinal system. Abdomen is flat, non-distended, Abd is soft and non tender X 4 quads. : No deficits noted. No signs and/or symptoms were reported regarding the genitourinary system. Derm: No deficits noted. No signs and/or symptoms reported regarding the dermatologic system. Musculoskeletal: No deficits noted. No signs and/or symptoms reported regarding the musculoskeletal system. Circulation, motion, and sensation intact. Range of motion: intact in all extremities. Historical: - Allergies: 02:42 No Known Allergies; dd2 - PMHx: 02:42 CLL; Hypertension; Leukemia; dd2 - PSHx: 02:42 hernia repair; dd2 - Immunization history:: Adult Immunizations up to date, Client reports receiving the 2nd dose of the Covid vaccine, Pneumococcal vaccine is up to date, Flu vaccine is up to date. - Infectious Disease History:: Denies. - Social history:: Smoking status: Patient denies any tobacco usage or history of. - Family history:: not pertinent. Screenin:46 [facility] ED Fall Risk Assessment (Adult) History of falling in the last 3 months, dd2 including since admission No falls in past 3 months (0 pts) Confusion or Disorientation No (0 pts) Intoxicated or Sedated No (0 pts) Impaired Gait No (0 pts) Mobility Assist Device Used No (0 pt) Altered Elimination No (0 pt) Score/Fall Risk Level 0 - 2 = Low Risk Oriented to surroundings, Maintained a safe environment, Educated pt \T\ family on fall prevention, incl call for assistance when getting out of bed, Assessed \T\ reinforced patient's understanding of fall precautions, Hourly rounding (assess needs \T\ fall precautionary measures) done. Abuse screen: Denies threats or abuse. Denies injuries from another. Nutritional screening: No deficits noted. Tuberculosis screening: No symptoms or risk factors identified. Assessment: :46 Reassessment: SEE TRIAGE ASSESSMENT. dd2 Vital Signs: 02:39 BP 180 / 73; Pulse 83; Resp 16; Temp 98.3; Pulse Ox 100% on R/A; Weight 74.84 kg; Pain dd2 7/10; 03:00 BP 139 / 69; Pulse 69; Resp 16; Pulse Ox 97% on R/A; Pain 3/10; dd2 03:30 BP 130 / 61; Pulse 70; Resp 16; Pulse Ox 95% on R/A; dd2 04:00 BP 130 / 59; Pulse 64; Resp 16; Pulse Ox 95% on R/A; dd2 06:00 BP 134 / 58; Pulse 69; Resp 16; Pulse Ox 96% on R/A; dd2 02:39 Pain Scale: Adult dd2 03:00 Pain Scale: Adult dd2 Pk Coma Score: 02:46 Eye Response: spontaneous(4). Motor Response: obeys commands(6). Verbal Response: dd2 oriented(5). Total: 15. 02:58 Eye Response: spontaneous(4). Motor Response: obeys commands(6). Verbal Response: sp4 oriented(5). Total: 15. ED Course: 02:25 Patient arrived in ED. [id number] 02:30 Pb Cote MD is Attending Physician. sp4 02:39 KINGSLEY MALIK, DON is Primary Nurse. dd2 02:41 Triage completed. dd2 02:42 Arm band placed on right wrist. EKG completed in triage. Results shown to MD. dd2 02:46 Patient has correct armband on for positive identification. Bed in low position. Call dd2 light in reach. Side rails up X2. Client placed on continuous cardiac and pulse oximetry monitoring. NIBP monitoring applied. case monitor on. Door closed. Noise minimized. Warm blanket given. Pillow given. Verbal reassurance given. 02:46 No provider procedures requiring assistance completed. Initial lab(s) drawn, by ED dd2 staff, sent to lab. EKG done, by ED staff, reviewed by Pb Cote MD. Inserted saline lock: 20 gauge in left antecubital area, using aseptic technique. Blood collected. Flushed with 10 mL NS. Patient maintains SpO2 saturation greater than 95% on room air. 03:03 XRAY Chest (1 view) In Process Unspecified. EDMS 04:50 Po Giang MD is Hospitalizing Provider. sp4 Administered Medications: 03:16 Drug: Aspirin PO Chewable Tablet 243 mg PO once; 81 mg tablets x 3 Route: PO; dd2 03:46 Follow up: Response: No adverse reaction dd2 Medication: 02:46 VIS not applicable for this client. dd2 Outcome: 04:52 Decision to Hospitalize by Provider. sp4 08:59 Patient left the ED. ph Signatures: Dispatcher [employer] Kathrin Kemp RN RN Michelle Vu6 Pb Cote MD MD sp4 KINGSLEY MALIK RN RN dd2
--- NOTE | 2024-05-14 04:52 | EDPHYS ---
Physician Documentation [facility] Name: Oscar Hernandez Age: 88 yrs Sex: Male : 1935 Arrival Date: 05/14/2024 Time: 02:24 Bed 2 Private MD: ED Physician Pb Cote HPI: 05/14 02:30 This 88 yrs old Male presents to ER via Unassigned with complaints of Chest sp4 Pain. 02:57 88-year-old male presents with acute chest pain midsternal chest pressure starting 2 sp4 hours prior to arrival . Patient woke up with acute chest pain with radiation to the left arm and left neck. No prior history of coronary artery disease. 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 Patient takes Epidaza, additional medications at home include valacyclovir, levofloxacin, fluconazole, Vidaza, ondansetron, furosemide, losartan potassium, tamsulosin, finasteride, mitochondrial energy booster. . Historical: - Allergies: 02:42 No Known Allergies; dd2 - PMHx: 02:42 CLL; Hypertension; Leukemia; dd2 - PSHx: 02:42 hernia repair; dd2 - Immunization history:: Adult Immunizations up to date, Client reports receiving the 2nd dose of the Covid vaccine, Pneumococcal vaccine is up to date, Flu vaccine is up to date. - Infectious Disease History:: Denies. - Social history:: Smoking status: Patient denies any tobacco usage or history of. - Family history:: not pertinent. ROS: 02:58 Constitutional: Negative for fever, chills, and weight loss, Eyes: Negative for injury, sp4 pain, redness, and discharge, 02:58 Cardiovascular: Positive for chest pain, Positive for midsternal chest pressure, 02:58 All other systems are negative, Exam: 02:58 Constitutional: This is a well developed, well nourished patient who is awake, alert, sp4 and in no acute distress. Head/Face: Normocephalic, atraumatic. Eyes: Pupils equal round and reactive to light, extra-ocular motions intact. Lids and lashes normal. Conjunctiva and sclera are not injected. Cornea within normal limits. Periorbital areas with no swelling, redness, or edema. ENT: Nares patent. No nasal discharge, no septal abnormalities noted. Tympanic membranes are normal and external auditory canals are clear. Oropharynx with no redness, swelling, or masses, exudates, or evidence of obstruction, uvula midline. Mucous membranes moist. Neck: Trachea midline, no thyromegaly or masses palpated, and no cervical lymphadenopathy. Supple, full range of motion without nuchal rigidity, or vertebral point tenderness. Chest/axilla: Normal chest wall appearance and motion. Nontender with no deformity. No lesions are appreciated. Cardiovascular: Regular rate and rhythm with a normal S1 and S2. No gallops, murmurs, or rubs. Normal PMI, no JVD. No pulse deficits. Respiratory: Lungs have equal breath sounds bilaterally, clear to auscultation and percussion. No rales, rhonchi or wheezes noted. No increased work of breathing, no retractions or nasal flaring. Abdomen/GI: Soft, with normal bowel sounds. No distension or tympany. No guarding or rebound. No evidence of tenderness throughout. Back: No spinal tenderness. No costovertebral tenderness. Skin: Warm, dry with normal turgor. Normal color with no rashes, no lesions, and no evidence of cellulitis. MS/ Extremity: Pulses equal, no cyanosis. Neurovascular intact. Full, normal range of motion. Neuro: Awake and alert, GCS 15, oriented to person, place, time, and situation. Cranial nerves II-XII grossly intact. Motor strength 5/5 in all extremities. Sensory grossly intact. Psych: Awake, alert, with orientation to person, place and time. Behavior, mood, and affect are within normal limits 02:58 ECG was reviewed by the Attending Physician. EKG 0 234 normal sinus rhythm with occasional PVCs rate 89. Vital Signs: 02:39 BP 180 / 73; Pulse 83; Resp 16; Temp 98.3; Pulse Ox 100% on R/A; Weight 74.84 kg; Pain dd2 7/10; 03:00 BP 139 / 69; Pulse 69; Resp 16; Pulse Ox 97% on R/A; Pain 3/10; dd2 03:30 BP 130 / 61; Pulse 70; Resp 16; Pulse Ox 95% on R/A; dd2 04:00 BP 130 / 59; Pulse 64; Resp 16; Pulse Ox 95% on R/A; dd2 06:00 BP 134 / 58; Pulse 69; Resp 16; Pulse Ox 96% on R/A; dd2 02:39 Pain Scale: Adult dd2 03:00 Pain Scale: Adult dd2 Pk Coma Score: 02:46 Eye Response: spontaneous(4). Motor Response: obeys commands(6). Verbal Response: dd2 oriented(5). Total: 15. 02:58 Eye Response: spontaneous(4). Motor Response: obeys commands(6). Verbal Response: sp4 oriented(5). Total: 15. MDM: 02:31 Medical Screening Exam initiated sp4 04:07 Differential diagnosis: acute myocardial infarction, acute pericarditis, anxiety, sp4 coronary artery disease chest wall pain. HEART Score: History: Highly Suspicious (2), ECG: Normal (0), Age: > or = 65 years (2), Risk Factors: 1 or 2 risk factors (1), Troponin: < or = 1 x Normal Limit (0), Total Score = 5. ED course: EXAM DESCRIPTION: X-ray single view chest. CLINICAL HISTORY: 88 years Male, CHEST PAIN COMPARISON: CT chest report from 10/10/2023. The images were not available for review. TECHNIQUE: Single portable x-ray view of the chest performed on 05/14/2024 at 2:57 AM FINDINGS: The lungs are well expanded and are clear. There is no evidence of a pneumothorax. The cardiac silhouette is normal in size and configuration. The mediastinal contours are normal. No acute osseous abnormality is identified. No acute soft tissue abnormalities are seen. There are a couple of small, nonspecific radiopaque densities projecting above the mid right clavicle. Lines and tubes: There are multiple overlying air sampling and monitoring leads. Free air: None identified, IMPRESSION: No evidence of acute intrathoracic disease. There are a couple of small, nonspecific radiopaque densities projecting about the mid right clavicle. . 04:52 The patient was given aspirin in the Emergency Department. Data reviewed: vital signs, sp4 nurses notes, lab test result(s), EKG, radiologic studies, plain films. 05/14 02:31 Order name: Basic Metabolic Panel; Complete Time: 04:07 sp4 05/14 02:31 Order name: CBC with Diff sp4 05/14 02:31 Order name: LFT's; Complete Time: 04:07 sp4 05/14 02:31 Order name: Magnesium; Complete Time: 04:07 sp4 05/14 02:31 Order name: NT PRO-BNP; Complete Time: 04:07 sp4 05/14 02:31 Order name: PT-INR; Complete Time: 04:07 sp4 05/14 02:31 Order name: Troponin HS; Complete Time: 04:07 sp4 05/14 02:56 Order name: TSH; Complete Time: 04:07 sp4 05/14 02:56 Order name: T4 Free; Complete Time: 04:07 sp4 05/14 02:56 Order name: CRP; Complete Time: 04:07 sp4 05/14 04:25 Order name: Manual Differential EDFL 05/14 05:30 Order name: Troponin High Sensitivity [facility] 05/14 02:31 Order name: XRAY Chest (1 view) [facility] 05/14 05:26 Order name: CONS Physician Consult EDFL 05/14 02:31 Order name: Cardiac monitoring; Complete Time: 02:38 4 05/14 02:31 Order name: EKG - Nurse/Tech; Complete Time: 02:38 sp4 05/14 02:31 Order name: IV Saline Lock; Complete Time: 02:38 sp4 05/14 02:31 Order name: Labs collected and sent; Complete Time: : sp4 05/14 02:31 Order name: O2 Per Protocol; Complete Time: 02:38 sp4 05/14 02:31 Order name: O2 Sat Monitoring; Complete Time: :38 sp4 EC:34 Rate is 89 beats/min. Rhythm is regular, Sinus Rhythm with Unifocal PVCs, Occasional sp4 PVCs. QRS [place] is Normal. CA interval is normal. QRS interval is normal. QT interval is normal. No Q waves. T waves are Normal. No ST changes noted. Clinical impression: No evidence of ischemia. Interpreted by me. Reviewed by me. Administered Medications: 03:16 Drug: Aspirin PO Chewable Tablet 243 mg PO once; 81 mg tablets x 3 Route: PO; dd2 03:46 Follow up: Response: No adverse reaction dd2 Disposition Summary: 05/14/24 04:52 Hospitalization Ordered Notes: Hospitalization Status: Inpatient Admission sp4 Provider: Po Giang [place] Location: Telemetry/[facility]Sur (Inpatient) sp4 Condition: Stable sp4 Problem: new sp4 Symptoms: have improved sp4 Bed/Room Type: Standard sp4 Room Assignment: sp4 Diagnosis - Unstable angina sp4 Forms: - Medication Reconciliation Form sp4 - SBAR form sp4 - Leadership Thank You Letter sp4 Signatures: Dispatcher [employer] EDMS Pb Cote MD MD sp4 KINGSLEY MALIK RN RN dd2 Corrections: (The following items were deleted from the chart) 05:31 05:31 Troponin High Sensitivity+C.LAB.BRZ ordered. EDMS EDMS
--- NOTE | 2024-05-14 05:10 | RAD REPORT ---
EXAM DESCRIPTION: X-ray single view chest. CLINICAL HISTORY: 88 years Male, CHEST PAIN COMPARISON: CT chest report from 10/10/2023. The images were not available for review. TECHNIQUE: Single portable x-ray view of the chest performed on 05/14/2024 at 2:57 AM FINDINGS: The lungs are well expanded and are clear. There is no evidence of a pneumothorax. The cardiac silhouette is normal in size and configuration. The mediastinal contours are normal. No acute osseous abnormality is identified. No acute soft tissue abnormalities are seen. There are a couple of small, nonspecific radiopaque dens ities projecting above the mid right clavicle. Lines and tubes: There are multiple overlying cardiac catheterization technician leads. Free air: None identified, IMPRESSION: No evidence of acute intrathoracic disease. There are a couple of small, nonspecific radiopaque densi ties projecting about the mid right clavicle. Electronically signed by: Thuy Banerjee DO 05/14/2024 03:47 AM [facility] Due to temporary technical issues with the PACS/[place] reporting system, reports are being lina d by the in-house radiologist without review as a courtesy to ensure prompt reporting the interpreting radiologist is fully responsible for the content of the report. Transcribed Date/Time: 05/14/2024 5:09 AM
[2024-05-14] MEDS ORDERED: ONDANSETRON 4 MG/2 ML VIAL IV PRN (07:55)
[2024-05-14] MEDS ORDERED: ALBUTEROL 2.5 MG/3 ML NEB SOL NEB PRN (07:55)
[2024-05-14] MEDS ORDERED: ACETAMINOPHEN 325 MG TABLET PO PRN (07:55)
[2024-05-14] MEDS ORDERED: ZOLPIDEM TARTRATE 5 MG TABLET PO PRN (07:55)
[2024-05-14] MEDS ORDERED: NITROGLYCERIN/D5W 50 MG/250 ML BTL IV ONE (08:25)
[2024-05-14] MEDS ORDERED: HEPA 1000U/500MLS 1,000 UNIT/500 ML BAG IV ONE (08:25)
[2024-05-14] MEDS ORDERED: CLOPIDOGREL 75 MG TABLET ONE (08:26)
[2024-05-14] MEDS ORDERED: LIDOCAINE 1% 20 ML MDV ONE (08:26)
[2024-05-14] MEDS ORDERED: TICAGRELOR 90 MG TABLET PO ONE (08:26)
[2024-05-14] MEDS ORDERED: HEPARIN 10,000 UNIT/10 ML VIAL IV ONE (08:26)
[2024-05-14] MEDS ORDERED: HEPARIN 5000 UNIT/ML 1 ML VIAL ONE (08:26)
[2024-05-14] MEDS ORDERED: ATROPINE SULF 1 MG/10 ML SYR IV ONE (08:27)
[2024-05-14] MEDS ORDERED: ASPIRIN 325 MG TAB ONE (08:27)
[2024-05-14] MEDS: FLUCONAZOLE 100 MG TAB PO SCH (09:00)
[2024-05-14] MEDS: FINASTERIDE 5 MG TAB PO SCH (09:00)
[2024-05-14] MEDS: LOSARTAN POTASSIUM 50 MG TABLET PO SCH (09:00)
[2024-05-14] MEDS: VALACYCLOVIR 500 MG TAB PO SCH (09:00)
[2024-05-14] MEDS ORDERED: FENTANYL CITR 100 MCG/2 ML ONE (09:04)
[2024-05-14] MEDS ORDERED: MIDAZOLAM HCL 2 MG/2 ML INJ ONE (09:04)
[2024-05-14] MEDS ORDERED: NA CHLORIDE 0.9% 500 ML ONE (09:05)
[2024-05-14 09:12] VITALS: TEMP 98.3
[2024-05-14 12:13] VITALS: O2SAT 98
[2024-05-14 12:35] VITALS: BP 125/47
[2024-05-14 13:10] VITALS: BMI 23.8
--- NOTE | 2024-05-14 13:28 | P.CNS ---
Date of Consult: 05/14/24 Chief Complaint: unstable angina History of Present Illness: Patient with PMH of HTN, presented with chest pain, pressure in nature, there was concern for angina so cardiology were consulted. Allergies No Known Drug Allergies Allergy (Verified 08/29/21 09:40) Unknown Home medications list reviewed: Yes Home Medications: Valacyclovir [Valtrex*] 500 mg PO DAILY 08/03/18 Levofloxacin [Levaquin] 500 mg PO DAILY 5 Days #5 tablet 08/04/18 Azacitidine [Vidaza] 1 mg IJ DAILY 08/29/21 Fluconazole 100 mg PO DAILY 08/29/21 Ondansetron [Zofran (Odt)*] 4 mg PO PRN PRN 08/29/21 Finasteride 5 mg PO DAILY 05/14/24 Furosemide 40 mg PO DAILY 05/14/24 Losartan Potassium 50 mg PO DAILY 05/14/24 Tamsulosin [Flomax] 0.4 mg PO DAILY 05/14/24 - Past Medical/Surgical History Diabetic: No -: HTN -: CLL -: MDS Leukemia -: Prostate CA -: hernia repair - Social History Alcohol use: Yes CD- Drugs: No Caffeine use: Yes Place of Residence: Home Review of Systems 10-point ROS is otherwise unremarkable Physical Examination Temp Pulse Resp BP Pulse Ox 98.3 F 60 16 125/47 L 05/14/24 09:07 05/14/24 12:25 05/14/24 12:25 05/14/24 12:25 General: Alert, In no apparent distress HEENT: Atraumatic, PERRLA, Mucous membr. moist/pink, EOMI, Sclerae nonicteric Neck: Supple, 2+ carotid pulse no bruit, No LAD, Without JVD or thyroid abnormality Respiratory: Clear to auscultation bilaterally, Normal air movement Cardiovascular: Regular rate/rhythm, Normal S1 S2 Gastrointestinal: Normal bowel sounds, No tenderness Musculoskeletal: No tenderness Integumentary: No rashes Neurological: Normal gait, Normal speech, Normal tone, Normal affect Lymphatics: No axilla or inguinal lymphadenopathy Laboratory Data (last 24 hrs) 05/14/24 05/14/24 05/14/24 02:40 02:40 02:40 WBC 19.10 H Hgb 10.1 L Hct 29.8 L Plt Count 131 L PT 13.5 H INR 1.19 Sodium 131 L Potassium 3.9 BUN 13 Creatinine 0.87 Glucose 85 Magnesium 2.2 Total Bilirubin 0.5 AST 25 ALT 18 Alkaline Phosphatase 94 - Problems (1) Chest pain Current Visit: Yes Status: Acute Plan: there was a concern for unstable angina, coronary angiogram done and shown mild CAD. continue ASA 81 mg daily (2) HTN (hypertension) Current Visit: Yes Status: Acute Plan: continue Losartan 50 mg daily (3) PVC (premature ventricular contraction) Current Visit: Yes Status: Acute Plan: outpatient follow up with cardiology for an event monitor and echo
--- NOTE | 2024-05-14 14:50 | P.SSS ---
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 HE HAS CHEST PAIN WITH RADIATION TO ARM AND JAW. HE HAS CLASSIC HISTORY SO I CALLED TO GET CATH DONE BY DR. HALL OTHERWISE HE WILL BE STAYING HERE ALL WEEKEND. DR. HALL DID THE CATH AND FOUND MINIMAL BLOCKAGES WITH NO MAJOR ISSUES. HE IS STABLE FOR HOME. I WILL CALL IN [facility] IN CASE HE GETS PAIN AGAIN. Allergies No Known Drug Allergies Allergy (Verified 08/29/21 09:40) Unknown Home medications list reviewed: Yes Home Medications: Valacyclovir [Valtrex*] 500 mg PO DAILY 08/03/18 Levofloxacin [Levaquin] 500 mg PO DAILY 5 Days #5 tablet 08/04/18 Azacitidine [Vidaza] 1 mg IJ DAILY 08/29/21 Fluconazole 100 mg PO DAILY 08/29/21 Ondansetron [Zofran (Odt)*] 4 mg PO PRN PRN 08/29/21 Finasteride 5 mg PO DAILY 05/14/24 Furosemide 40 mg PO DAILY 05/14/24 Losartan Potassium 50 mg PO DAILY 05/14/24 Tamsulosin [Flomax*] 0.4 mg PO DAILY 05/14/24 - Past Medical/Surgical History Has patient received pneumonia vaccine in the past: Yes Diabetic: No -: HTN -: CLL -: MDS Leukemia -: Prostate CA -: hernia repair - Social History Smoking Status: Former smoker Alcohol use: Yes CD- Drugs: No Caffeine use: Yes Place of Residence: Home Review of Systems 10-point ROS is otherwise unremarkable Physical Examination - Vital Signs Temperature: 98.3 F Blood Pressure: 125/47 Pulse: 60 Respirations: 16 - Physical Exam General: Alert, In no apparent distress HEENT: Atraumatic, PERRLA, Mucous membr. moist/pink, EOMI, Sclerae nonicteric Neck: Supple, 2+ carotid pulse no bruit, No LAD, Without JVD or thyroid abnormality Respiratory: Clear to auscultation bilaterally, Normal air movement Cardiovascular: Regular rate/rhythm, Normal S1 S2 Gastrointestinal: Normal bowel sounds, No tenderness Musculoskeletal: No tenderness Integumentary: No rashes Neurological: Normal gait, Normal speech, Normal strength at 5/5 x4 extr, Normal tone, Normal affect Lymphatics: No axilla or inguinal lymphadenopathy - Studies Laboratory Data (last 24 hrs) 05/14/24 05/14/24 05/14/24 02:40 02:40 02:40 WBC 19.10 H Hgb 10.1 L Hct 29.8 L Plt Count 131 L PT 13.5 H INR 1.19 Sodium 131 L Potassium 3.9 BUN 13 Creatinine 0.87 Glucose 85 Magnesium 2.2 Total Bilirubin 0.5 AST 25 ALT 18 Alkaline Phosphatase 94 - Diagnosis (Problem(s)) (1) Chest pain Current Visit: Yes Status: Acute Plan: CATH NEG. IT MAY FROM [facility] CALLEDIN. STABLE FOR DC FROM DR HALL. 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
[2024-05-14] MEDS ORDERED: TAMSULOSIN 0.4 MG SR CAP PO SCH (21:00)
--- NOTE | 2024-05-14 21:33 | OP ---
Date of Procedure: 05/14/2024 Surgeon: Tra Hemphill Procedure Performed: Selective coronary angiogram. Indication For Procedure: Unstable angina. Complications: None. Estimated Blood Loss: Less than 50 cc. Access: Right radial, closed by TR band. Sedation Time: 20 minutes with 1 of Versed and 25 of fentanyl. Description Of Procedure: After risks, benefits, and alternatives were explained to the patient, the patient agreed to proceed with procedure and signed informed consent. The patient was brought back to the labor training manager, prepped and draped in sterile fashion. Time-out was performed. Sedation was admini stered. Next, right radial access was obtained using ultrasound-guided micropuncture technique. Tig er 4 catheter was advanced over a J-wire to the aortic root. Selective angiogram was done of the lef t and right coronary systems using the same catheters. At the end of procedure, catheter was removed over a J-wire. Sheath was removed. TR band was applied. Hemostasis was achieved and the patient w as moved back to Recovery in stable condition. Findings: 1. Left main: Normal. 2. LAD: Diffuse mild luminal regularities with proximal 10% to 20% disease, then mid 30% disease, fo llowed by mild luminal regularities. Gives a medium-sized diagonal with ostial 40% to 50% disease. 3. Left circumflex: Mild luminal irregularities. 4. RCA: Large dominant mild luminal regularities. Assessment And Plan: Mild coronary artery disease. Plan will be to continue medical management. VALDEMAR/DONG Voice ID: [id number] Report ID: [id number]
--- NOTE | 2024-05-17 12:15 | EKG ---
Test Date: 2024-05-14 Test Time: 02:34:42 [place] Roller: AF MEASUREMENT RESULTS: Intervals: Rate: 89 IN: 206 QRSD: 86 QT: 366 QTc: 445 [place]: P: 79 IN: 206 QRS: 17 T: 72 INTERPRETIVE STATEMENTS: Sinus rhythm with occasional and consecutive premature ventricular complexes Abnormal ECG Compared to ECG 08/16/2020 12:38:25 Ventricular premature complex(es) now present Sinus tachycardia no longer present Atrial premature complex(es) no longer present Fusion complex(es) no longer present ST (T wave) deviation no longer present Possible ischemia no longer present Electronically Signed On 05-17-24 12:08:32 [employer] by Tra Hemphill
== END 2024-05-14 16:00 | disposition home health service (06) ==
LOC: ER 02:24 → INTOOBSV 05:21 → ERHOLD 05:21 → 4TH 15:01
PROVIDERS: ADMIT Internal Medicine; ATTEND Internal Medicine
PROC: B2111ZZ Fluoroscopy of Multiple Coronary Arteries using Low Osmolar Contrast (ICD-10-PCS; principal; 2024-05-14)
DX: R07.9 Chest pain, unspecified (principal); I25.10 Atherosclerotic heart disease of native coronary artery without angina pectoris; I49.3 Ventricular premature depolarization; E87.1 Hypo-osmolality and hyponatremia; E86.0 Dehydration; I10 Essential (primary) hypertension; C91.10 Chronic lymphocytic leukemia of B-cell type not having achieved remission; D46.9 Myelodysplastic syndrome, unspecified; Z79.60 Long term (current) use of unspecified immunomodulators and immunosuppressants; Z79.899 Other long term (current) drug therapy; Z85.46 Personal history of malignant neoplasm of prostate; Z87.891 Personal history of nicotine dependence
CPT/HCPCS: 93005; 85025; 80048; 36415; 83735; 85610; 80076; 84443; 84484 ×3; 84439; 83880; 86140; 71045; 93454; 76937; 99284; C1893; Q9966; J1644; J2003; J2250; J3010; G0378 ×4; J7040; 99152; 99153; J0461